=== PATIENT | female | born 1955 | race Caucasian/White ===

== ENCOUNTER 2022-03-16 05:54 | Inpatient (IN) | payer OTHER, SELFPAY ==
[2022-03-16] VITALS (7 sets, daily range): BP systolic 93–170; BP diastolic 30–80; PULSE 70–102; RESP 16–22; TEMP 36.5–36.6; O2SAT 93–100; BMI 25.7
--- NOTE | ~2022-03-16 | XR_ITS ---
EXAMINATION: XR CHEST CLINICAL INFORMATION: TLC placement COMPARISON: None TECHNIQUE: Frontal view of the chest was obtained. FINDINGS: Endotracheal tube tip lies approximately 2 cm above the margoth. Enteric tube courses into the stomach. Left IJ central line tip lies in the region of the right atrium. The lungs are hypoinflated. Mild bibasilar atelectasis is suspected. No evidence of pneumothorax or significant pleural effusion. The cardiomediastinal contour is unremarkable. No acute osseous findings are seen. XR/XR chest 1V IMPRESSION: Left IJ central line tip in the region of the right atrium. Low lung volumes with suspected bibasilar atelectasis.
--- NOTE | ~2022-03-16 | CT_ITS ---
EXAMINATION: CT ABDOMEN AND PELVIS WITH CONTRAST CLINICAL INFORMATION: Left lower quadrant pain. COMPARISON: None TECHNIQUE: Multidetector volumetric images were obtained from the superior aspect of the liver through the pubic symphysis following administration 85 mL of Omnipaque 350 intravenous contrast. Sagittal and coronal reformatted images were obtained on the technologist's workstation. Oral contrast: No. This CT examination was performed using dose optimization techniques as appropriate, variously including the following: *Automated exposure control *Adjustment of mA and/or kV according to patient size (this includes techniques or standardized protocols for targeted exams where dose is matched to indication/reason for exam; i.e. extremities or head) *Use of iterative reconstruction technique DLP: 669 mGy-cm FINDINGS: LUNG BASES: There is minimal dependent bibasilar atelectasis. There is a small hiatal hernia. The heart size is normal. LIVER, GALLBLADDER, AND BILIARY TREE: The liver is normal in size, shape, and attenuation. No focal hepatic lesion or biliary ductal dilatation is present. The gallbladder is unremarkable with no evidence of radiopaque gallstones, gallbladder wall thickening, or obvious pericholecystic inflammatory changes. PANCREAS: Unremarkable. SPLEEN: Unremarkable. ADRENAL GLANDS: Unremarkable. KIDNEYS AND URETERS: The kidneys are normal in size, shape, and attenuation. No hydronephrosis, hydroureter, or calculi seen. No perinephric stranding. There are small hypodensities in both kidneys, likely tiny cysts. BLADDER: Unremarkable. GASTROINTESTINAL TRACT: There is a large amount of stool seen throughout the colon with mild mural thickening involving the descending and sigmoid colon with fat stranding around the descending colon suggestive of colitis. A few scattered diverticula are seen in the sigmoid colon. Prominent terminal ileum with mural thickening and fecal residue seen. The rest of the small bowel is unremarkable. The appendix is not seen. ABDOMINAL WALL: No significant hernia is appreciated. LYMPH NODES: Normal. VASCULAR: Unremarkable. PELVIC VISCERA: There is a small amount of free fluid in the pelvis. OSSEOUS STRUCTURES: Grade 1 anterolisthesis L4 over L5. There are calcifications throughout the discs from the L2-L3 through L5-S1 disc levels. Mild ventral spondylosis seen in the lower dorsal and upper lumbar spine. CT/CT abdomen pelvis w IV con IMPRESSION: Diffuse mural thickening involving descending and sigmoid colon with pericolic fat stranding in descending colon suggestive of colitis, likely inflammatory infectious etiology. Moderate stool is seen in the right colon. Prominent terminal ileum with stool but no mural thickening seen, nonspecific. Results were called to Dr. Stephany rodriguez by phone at 9:58 AM. Fleischner guidelines were followed.
[2022-03-16] MEDS: 0.9 % Sodium Chloride 1,000 ML 999 ML IV (06:17)
[2022-03-16] MEDS: ondansetron HCL 4 MG/2 ML VIAL IVPUSH ×3 (06:17→09:53)
[2022-03-16] MEDS: Morphine Sulfate 4 MG/ML CARTRIDGE IVPUSH (06:17)
[2022-03-16 06:19] LABS: MANUAL DIFF FLAG NO
[2022-03-16 06:20] LABS: Basophils Absolute Auto 0.1 X10*3/uL (0.0-0.2); Basophils Percent Auto 0.3 % (0-2); Eosinophils Percent Auto 0.2 % (0-4); Hematocrit 41.1 % (37.0-47.0); Hemoglobin 14.1 g/dl (12.0-16.0); Imm Gran Abs Auto 0.09 X10*3/uL (0.00-0.03); Imm Gran Pct Auto 0.5 % (0.0-0.4); Lymphocytes Absolute Auto 1.5 X10*3/uL (1.2-4.9); Lymphocytes Percent Auto 8.6 % (20-40); Mean Corpuscular HGB Conc 34.3 g/dl (31.0-35.0); Mean Corpuscular Hemoglobin 31.7 pg (27.0-33.0); Mean Corpuscular Volume 92.4 fL (80.0-98.0); Mean Platelet Volume 9.7 fL (9.4-12.3); Monocytes Absolute Auto 0.6 X10*3/uL (0.1-1.2); Monocytes Percent Auto 3.4 % (2-11); Neutrophils Absolute Auto 15.5 x10*3/uL (2.0-8.3); Platelet Count 337 X10*3/uL (160-400); Red Blood Count 4.45 X10*6/uL (4.20-5.50); Red Cell Distribution Width 12.1 % (11.0-16.0); White Blood Count 17.8 X10*3/uL (4.8-10.8)
[2022-03-16 06:38] LABS: Alanine Aminotransferase 25 U/L (0-31); Albumin Level 4.2 g/dL (3.5-5.0); Alkaline Phosphatase 95 U/L (39-117); Anion Gap 20 (12-20); Aspartate Amino Transferase 29 U/L (5-31); Bilirubin Direct 0.2 mg/dL (0.0-0.5); Bilirubin Total 0.4 mg/dL (0.0-1.0); Blood Urea Nitrogen 21 mg/dL (9-16); Calcium 9.3 mg/dL (8.4-10.2); Carbon Dioxide 20 mmol/L (22-29); Chloride 102 mmol/L (96-108); Creatinine Clr Calc Pharmacy 48.5; Estimated Glomerular Filt Rate 55; Glucose Random 203 mg/dL (60-115); Lipase 19 U/L (8-78); Potassium 3.7 mmol/L (3.3-5.1); Sodium 138 mmol/L (135-145); Total Protein 6.6 g/dL (6.5-8.0)
--- NOTE | 2022-03-16 06:53 | ED.ABDPAIN ---
HPI - Abdominal Pain General Chief Complaint: Abdominal Pain Stated Complaint: lower left abd pain Time Seen by Provider: 03/16/22 06:47 Source: patient, family (Brother) and EMS Mode of arrival: EMS Limitations: no limitations History of Present Illness HPI narrative: 66-year-old female came in for evaluation of lower abdominal pain. Pain started 01:00 woke her up from sleep pain is localized to the left lower quadrant area radiates to the rectum feels pressure in the rectum area, pain is severe /10 described as dull aching pain, patient radiates to the rectum, and pain is constant, pain is associated with nausea and vomiting, no fever no chills last bowel movement was yesterday patient described it as normal. No dysuria, no frequency urination, no vaginal bleeding. No recent travel, no fever, no chills. History of abdominal surgery of appendectomy, hysterectomy, and . Patient with known history of diverticular disease. Related Data Home Medications Medication Instructions Recorded Confirmed lisinopril 10 mg tablet 1 tab PO DAILY 03/16/22 Allergies Allergy/AdvReac Type Severity Reaction Status Date / Time Penicillins Allergy Severe Hives Verified 03/16/22 11:13 Review of Systems Review of Systems All other systems are reviewed and are negative Constitutional: Reports as per HPI and Reports no additional constitutional complaints Eyes: Reports as per HPI and Reports no additional eye complaints Reports system reviewed and no additional complaints, except as documented Cardiovascular: Reports as per HPI and Reports no additional cardiovascular complaints Respiratory: Reports as per HPI and Reports no additional respiratory complaints Gastrointestinal: Reports as per HPI and Reports no additional gastrointestinal complaints Genitourinary: Reports no additional female genitourinary complaints Musculoskeletal: Reports no additional musculoskeletal complaints Skin/Breast: Reports system reviewed and no additional complaints, except as docu Psychiatric: Reports no additional psychiatric complaints Endocrine: Reports no additional endocrine complaints Hematologic/Lymphatic: Reports no additional hematologic/lymphatic complaints Allergic/Immunologic: Reports no additional allergic/immunologic complaints Reports system reviewed and no additional complaints, except as documented and Reports Abnormal speech present COUNTS INCLUDE 234 BEDS AT THE [facility] Past Medical History Medical History (Updated 03/16/22 @ 11:29 by Jose Francisco Linder MD) Browne esophagus Hypertension Surgical History (Updated 03/16/22 @ 11:29 by Jose Francisco Linder MD) History of section History of hysterectomy Social History Social History (Updated 03/16/22 @ 11:30 by Jose Francisco Linder MD) Alcohol intake: never Patient Tobacco Use Status: Never used Tobacco Use of substances other than those prescribed or required for medical reasons: No Advance Directives: No Current occupational status: employed 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 Blood pressure normal. Heart rate normal. Respiration rate elevated. Temperature normal. Oxygen saturation normal. Appearance: Alert. Oriented X3. No acute distress. Head: Normal external exam. Normocephalic. Atraumatic. No Jorgensen signs noted. No raccoon eyes noted Eyes: PERRLA. EOMI. Conjunctiva and sclera normal. Eyelids normal. ENT: TM's Normal. Pharynx normal. Uvula midline. Moist mucous membranes. No trismus noted. No drooling noted. No muffled voice noted. Neck: Normal inspection. Neck supple. FROM. No adenopathy. Thyroid Normal. No meningeal signs. No neck mass noted. CVS: Normal heart rate and rhythm. Heart sound normal. No murmurs noted. Pulses normal throughout. Respiratory: No respiratory distress. Painless inspiration. Breath sounds normal. No wheezes/rales/rhonchi noted. Chest nontender. No accessory muscle usage noted or decreased air movement noted. Abdomen: Soft, left lower quadrant tenderness, mild rebound tenderness with guarding.. Bowel sounds normal in all 4 quadrants. No distention noted. No organomegaly noted. No visible injury noted. Back: No CVA tenderness. Full range of motion noted. Skin: Skin warm and dry. Normal skin color. Normal skin turgor. No rashes/lesions/lacerations noted. Extremities: No lower extremity edema. Extremities exhibit normal range of motion. Extremities nontender. Neuro: Oriented X 3. Cranial nerve exam: II-XII are grossly intact No motor deficit. No sensory deficit. Reflexes normal. Course Course Course Narrative: 66-year-old female presented with abdominal pain CT is revealing colitis, heart rate was 99 and tachypnea of 22 which apparently secondary to severe abdominal pain now HR is 80s and RR is 16 after pain control, leukocytosis however patient do not meet criteria for SIRS or sepsis, and lactic acidosis is more than likely due to dehydration and vomiting, patient will receive Levaquin/Flagyl in the ED with pain control with narcotic and antinausea medication. MDM - Abdominal Pain Lab Data Attestation: I reviewed the patient's lab results. Result diagrams: 03/16/22 06:13 03/16/22 06:13 Labs: Lab Results 03/16/22 03/16/22 03/16/22 Range/Units 06:13 06:13 07:49 WBC 17.8 H (4.8-10.8) X10*3/uL RBC 4.45 (4.20-5.50) X10*6/uL Hgb 14.1 (12.0-16.0) g/dl Hct 41.1 (37.0-47.0) % MCV 92.4 (80.0-98.0) fL MCH 31.7 (27.0-33.0) pg MCHC 34.3 (31.0-35.0) g/dl RDW 12.1 (11.0-16.0) % Plt Count 337 (160-400) X10*3/uL MPV 9.7 (9.4-12.3) fL Immature Gran % (Auto) 0.5 H (0.0-0.4) % Neut % (Auto) 87.0 H (45-73) % Lymph % (Auto) 8.6 L (20-40) % [place] % (Auto) 3.4 (2-11) % Eos % (Auto) 0.2 (0-4) % Baso % (Auto) 0.3 (0-2) % Lymph # (Auto) 1.5 (1.2-4.9) X10*3/uL [place] # (Auto) 0.6 (0.1-1.2) X10*3/uL Eos # (Auto) 0.0 (0.0-0.4) X10*3/uL Baso # (Auto) 0.1 (0.0-0.2) X10*3/uL Abs Immat Gran (auto) 0.09 H (0.00-0.03) X10*3/uL Absolute Neuts (auto) 15.5 H (2.0-8.3) x10*3/uL Absolute Nucleated RBC 0.000 (0.0-0.012) X10*3/uL Nucleated RBC % (auto) 0.0 (0.0-0.2) /100WBC Sodium 138 (135-145) mmol/L Potassium 3.7 (3.3-5.1) mmol/L Chloride 102 (96-108) mmol/L Carbon Dioxide 20 L (22-29) mmol/L Anion Gap 20 (12-20) BUN 21 H (9-16) mg/dL Creatinine 1.00 (0.5-1.4) mg/dL Estim Creat Clear Calc 48.5 Estimated GFR 55 Random Glucose 203 H (60-115) mg/dL Lactic Acid (0.5-2.0) mmol/L Calcium 9.3 (8.4-10.2) mg/dL Magnesium 2.0 (1.6-2.6) mg/dL Total Bilirubin 0.4 (0.0-1.0) mg/dL Direct Bilirubin 0.2 (0.0-0.5) mg/dL AST 29 (5-31) U/L ALT 25 (0-31) U/L Alkaline Phosphatase 95 (39-117) U/L C-Reactive Protein 0.13 (< or = 0.50) mg/dL Total Protein 6.6 (6.5-8.0) g/dL Albumin 4.2 (3.5-5.0) g/dL Lipase 19 (8-78) U/L Urine Color Urine Appearance Urine pH (5.0-9.0) Ur Specific [place] (1.005-1.025) Urine Protein (Neg-Trace) mg/dL Urine Glucose (UA) (Negative) mg/dL Urine Ketones (Negative) mg/dL Urine Blood (Negative) Urine Nitrite (Negative) Ur Leukocyte Esterase (Negative) Urine RBC (0-2) /HPF Urine WBC (0-5) /HPF Ur Squamous Epith Cells (0-2) /HPF Urine Bacteria (None Seen) Hyaline Casts (0-2) /LPF COVID-19 (JASSI) Negative (Negative) COVID-19 Clin Com See Note 03/16/22 03/16/22 Range/Units 09:04 10:27 WBC (4.8-10.8) X10*3/uL RBC (4.20-5.50) X10*6/uL Hgb (12.0-16.0) g/dl Hct (37.0-47.0) % MCV (80.0-98.0) fL MCH (27.0-33.0) pg MCHC (31.0-35.0) g/dl RDW (11.0-16.0) % Plt Count (160-400) X10*3/uL MPV (9.4-12.3) fL Immature Gran % (Auto) (0.0-0.4) % Neut % (Auto) (45-73) % Lymph % (Auto) (20-40) % [place] % (Auto) (2-11) % Eos % (Auto) (0-4) % Baso % (Auto) (0-2) % Lymph # (Auto) (1.2-4.9) X10*3/uL [place] # (Auto) (0.1-1.2) X10*3/uL Eos # (Auto) (0.0-0.4) X10*3/uL Baso # (Auto) (0.0-0.2) X10*3/uL Abs Immat Gran (auto) (0.00-0.03) X10*3/uL Absolute Neuts (auto) (2.0-8.3) x10*3/uL Absolute Nucleated RBC (0.0-0.012) X10*3/uL Nucleated RBC % (auto) (0.0-0.2) /100WBC Sodium (135-145) mmol/L Potassium (3.3-5.1) mmol/L Chloride (96-108) mmol/L Carbon Dioxide (22-29) mmol/L Anion Gap (12-20) BUN (9-16) mg/dL Creatinine (0.5-1.4) mg/dL Estim Creat Clear Calc Estimated GFR Random Glucose (60-115) mg/dL Lactic Acid 3.3 H* (0.5-2.0) mmol/L Calcium (8.4-10.2) mg/dL Magnesium (1.6-2.6) mg/dL Total Bilirubin (0.0-1.0) mg/dL Direct Bilirubin (0.0-0.5) mg/dL AST (5-31) U/L ALT (0-31) U/L Alkaline Phosphatase (39-117) U/L C-Reactive Protein (< or = 0.50) mg/dL Total Protein (6.5-8.0) g/dL Albumin (3.5-5.0) g/dL Lipase (8-78) U/L Urine Color Dark Yellow Urine Appearance Clear Urine pH 5.0 (5.0-9.0) Ur Specific [place] >= 1.030 H (1.005-1.025) Urine Protein Trace (Neg-Trace) mg/dL Urine Glucose (UA) Negative (Negative) mg/dL Urine Ketones Negative (Negative) mg/dL Urine Blood Negative (Negative) Urine Nitrite Negative (Negative) Ur Leukocyte Esterase Trace H (Negative) Urine RBC 3-5 H (0-2) /HPF Urine WBC 0-5 (0-5) /HPF Ur Squamous Epith Cells 0-2 (0-2) /HPF Urine Bacteria None Seen (None Seen) Hyaline Casts 0-2 (0-2) /LPF COVID-19 (JASSI) (Negative) COVID-19 Clin Com Imaging Data CT scan - abdomen: Attestation: I personally reviewed and interpreted this imaging study as follows: Radiologist's impression: Diffuse mural thickening involving descending and sigmoid colon with pericolic fat stranding in descending colon suggestive of colitis, likely inflammatory infectious etiology. Moderate stool is seen in the right colon. Prominent terminal ileum with stool but no mural thickening seen, nonspecific. Discharge Plan Discharge Clinical Impression: Abdominal pain, Colitis Patient Disposition: Admitted As Inpatient
[2022-03-16] MEDS: HYDROmorphone HCl 1 MG/ML SYRINGE IVPUSH ×2 (07:25→09:53)
[2022-03-16] MEDS: iohexoL 350 MG/ML 100 ML INFUS..BTL 85 ML IV (07:42)
[2022-03-16] MEDS: iohexoL 350 MG/ML 100 ML INFUS..BTL IV (07:58)
[2022-03-16 08:08] LABS: COVID-19 Test Negative (Negative); IDNOW Serial# 55D5AD1C
[2022-03-16 09:13] LABS: Appearance Urine Clear; Color Urine Dark Yellow; Glucose Urine UA Negative (Negative); Leukocyte Esterase Urine Trace (Negative); Nitrite Urine Negative (Negative); Specific Gravity - Urine >= 1.030 (1.005-1.025); UMIC TRIGGER UACC YES; Urine Blood Negative (Negative); Urine Ketones Negative (Negative); Urine Protein Trace mg/dL (Neg-Trace)
[2022-03-16 09:34] LABS: Bacteria Urine None Seen (None Seen); Hyaline Casts Urine 0-2 /LPF (0-2); Squamous Epithelial Cell Urine 0-2 /HPF (0-2); WBC Urine 0-5 /HPF (0-5)
[2022-03-16 11:10] LABS: C Reactive Protein 0.13 mg/dL (< or = 0.50)
[2022-03-16] MEDS: metroNIDAZOLE/NS 500 MG/100 ML PIGGYBACK 100 MG IV (11:16)
--- NOTE | 2022-03-16 11:21 | P.HPHOSP_ITS ---
History of Present Illness Date of Service: 03/16/22 Chief Complaint: abdominal pain 66yo F with HTN and Browne's esophagus presenting with acute onset of severe rectal pain radiating to the LLQ that woked her from sleep at 01:00. She has also had nausea and several episodes of non-bloody, non-bilious emesis. No diarrhea; in fact, she usually struggles with constipation. No fever or chills. No recent antibiotics, overseas travel, or high-risk food exposures. 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 In the ED she was tachypneic to 22 and found to have leukocytosis of 17.8k with 87% PMNs. She was given levofloxacin and metronidazole due to history of hives with penicillin. She got 3 doses of ondansetron 4 mg, 4 mg of IV morphine, and 2 doses of IV hydromorphone 1 mg. She was also given 1L of NS. Lactic acid was 3.3. CT showed diffuse mural thickening of the descending and sigmoid colon suggestive of inflammatory or infectious colitis. She had a colonoscopy approximately 2 y ears ago that showed diverticulosis. No known history of IBD, though her mother struggles with chronic diarrhea. Review of Systems Review of Systems: Yes all other systems are reviewed and are negative [facility] Medical History (Updated 03/16/22 @ 11:29 by Jose Francisco Linder MD) Browne esophagus Hypertension Surgical History (Updated 03/16/22 @ 11:29 by Jose Francisco Linder MD) History of section History of hysterectomy Social History (Updated 03/16/22 @ 11:30 by Jose Francisco Linder MD) Alcohol intake: never Patient Tobacco Use Status: Never used Tobacco Use of substances other than those prescribed or required for medical reasons: No Advance Directives: No Current occupational status: employed 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 Meds Allergies Allergy/AdvReac Type Severity Reaction Status Date / Time Penicillins Allergy Severe Hives Verified 03/16/22 11:13 Active Medications: Current Medications Acetaminophen (Acetaminophen 325 Mg Tablet) 650 mg PO Q6H PRN PRN Reason: Pain, Mild (Pain Scale 1-3) Enoxaparin Sodium (Enoxaparin Sodium 40 Mg/0.4 Ml Syringe) 40 mg SUBCUT Q24H DEANDRA Levofloxacin (Levaquin) 750 mg in 150 mls @ 100 mls/hr IV ONCE ONE Stop: 03/16/22 11:29 Lactated Ringer's (Lr) 1,000 mls @ 100 mls/hr IVCONT .Q10H [facility] Metoclopramide HCl (Metoclopramide Hcl 10 Mg/2 Ml Vial) 5 mg IVPUSH Q4H PRN PRN Reason: nausea/vomiting Ondansetron HCl (Ondansetron Hcl 4 Mg/2 Ml Vial) 4 mg IVPUSH Q8H PRN PRN Reason: nausea/vomiting Pharmacy Consult (Consult Rx Perform Med Rec) 1 each MISCELLANE ONCE PRN PRN Reason: Consult order Sodium Chloride (0.9 % Sodium Chloride Flush 3 Ml Syringe) 3 ml IVFLUSH QSHIFT [facility] Home Medications Medication Instructions Recorded Confirmed Last Taken Type lisinopril 10 mg tablet 1 tab PO DAILY 03/16/22 Unknown History Physical Exam Vital Signs and Narrative: Vital Signs: Last Vital Signs Pulse 84 03/16/22 09:05 Resp 16 03/16/22 09:05 BP 99/55 L 03/16/22 09:05 Pulse Ox 95 03/16/22 09:05 O2 Del Method 03/16/22 09:05 BMI result Body Mass Index 25.7 Gen: nauseous, vomiting HEENT: sclera anicteric, moist mucus membranes Neck: supple Lungs: clear to auscultation bilaterally Heart: regular rate and rhythm, no murmurs Abd: soft, tender LLQ, no rebound/guarding non-distended Ext: no edema Skin: warm/well-perfused Neuro: alert and oriented x3, no focal findings Psych: appropriate affect Results Labs CBC and Chem 7: 03/16/22 06:13 03/16/22 06:13 Labs: Laboratory Results - last 24 hr 03/16/22 03/16/22 03/16/22 06:13 06:13 07:49 MCV 92.4 MCH 31.7 MCHC 34.3 RDW 12.1 Plt Count 337 MPV 9.7 Immature Gran % (Auto) 0.5 H Neut % (Auto) 87.0 H Lymph % (Auto) 8.6 L [place] % (Auto) 3.4 Eos % (Auto) 0.2 Baso % (Auto) 0.3 Lymph # (Auto) 1.5 [place] # (Auto) 0.6 Eos # (Auto) 0.0 Baso # (Auto) 0.1 Abs Immat Gran (auto) 0.09 H Absolute Neuts (auto) 15.5 H Absolute Nucleated RBC 0.000 Nucleated RBC % (auto) 0.0 Anion Gap 20 Estim Creat Clear Calc 48.5 Estimated GFR 55 Random Glucose 203 H Calcium 9.3 Magnesium 2.0 Total Bilirubin 0.4 Direct Bilirubin 0.2 AST 29 ALT 25 Alkaline Phosphatase 95 C-Reactive Protein 0.13 Total Protein 6.6 Albumin 4.2 Lipase 19 Urine Color Urine Appearance Urine pH Ur Specific [place] Urine Protein Urine Glucose (UA) Urine Ketones Urine Blood Urine Nitrite Ur Leukocyte Esterase Urine RBC Urine WBC Ur Squamous Epith Cells Urine Bacteria Hyaline Casts COVID-19 (JASSI) Negative COVID-19 Clin Com See Note 03/16/22 09:04 MCV MCH MCHC RDW Plt Count MPV Immature Gran % (Auto) Neut % (Auto) Lymph % (Auto) [place] % (Auto) Eos % (Auto) Baso % (Auto) Lymph # (Auto) [place] # (Auto) Eos # (Auto) Baso # (Auto) Abs Immat Gran (auto) Absolute Neuts (auto) Absolute Nucleated RBC Nucleated RBC % (auto) Anion Gap Estim Creat Clear Calc Estimated GFR Random Glucose Calcium Magnesium Total Bilirubin Direct Bilirubin AST ALT Alkaline Phosphatase C-Reactive Protein Total Protein Albumin Lipase Urine Color Dark Yellow Urine Appearance Clear Urine pH 5.0 Ur Specific [place] >= 1.030 H Urine Protein Trace Urine Glucose (UA) Negative Urine Ketones Negative Urine Blood Negative Urine Nitrite Negative Ur Leukocyte Esterase Trace H Urine RBC 3-5 H Urine WBC 0-5 Ur Squamous Epith Cells 0-2 Urine Bacteria None Seen Hyaline Casts 0-2 COVID-19 (JASSI) COVID-19 Clin Com Imaging Radiologist's Impressions: Impressions Abdomen/Pelvis CT 03/16/22 07:57 IMPRESSION: Diffuse mural thickening involving descending and sigmoid colon with pericolic fat stranding in descending colon suggestive of colitis, likely inflammatory infectious etiology. Moderate stool is seen in the right colon. Prominent terminal ileum with stool but no mural thickening seen, nonspecific. Results were called to Dr. Stephany rodriguez by phone at 9:58 AM. Fleischner guidelines were followed. Assessment and Plan (1) Colitis: Status: Acute Plan 66yo F with HTN and Browne's esophagus presenting with acute rectal/LLQ pain and nausea/vomiting, found to have leukocytosis, lactic acidosis, and CT finding of colitis of sigmoid and descending colon. # colitis - admit to M/S, NPO/ADAT, IV fluids, IV antiemetics, metronidazole + levofloxacin IV, GI consultation, stool studies if develops diarrhea # lactic acidosis - IV fluid hyration # HTN - hold lisinopril given soft BP # Barretts esophagus - PPI # VTE prophylaxis: LMWH # code status: full I anticipate that the patient will stay at least 2 midnights in hospital due to the above reasons. It is neither reasonable nor safe to care for them in a less acute setting. Quality Stroke Does the patient have a stroke diagnosis?: No VTE Prior VTE?: No VTE Risk Level:: Medical - moderate - high VTE Device Contraindication: N/A - Device Ordered VTE Drug Contraindication: N/A - Med Ordered
[2022-03-16 11:24] LABS: Lactic Acid 3.3 mmol/L (0.5-2.0)
[2022-03-16] MEDS: Pantoprazole Sodium 40 MG/10 ML VIAL IVPUSH (12:20)
[2022-03-16] MEDS: Metoclopramide HCl 10 MG/2 ML VIAL 5 MG IVPUSH ×2 (12:21→17:38)
[2022-03-16] MEDS: levoFLOXacin/D5W 750 MG/150 ML PIGGYBACK 100 MG IV (12:24)
[2022-03-16] MEDS: Lactated Ringers 1,000 ML 100 ML IVCONT (12:24)
--- NOTE | 2022-03-16 12:29 | PHA.MEDREC ---
Pharmacy Consult ? Medication Reconciliation Pharmacy has completed the medication reconciliation. With Geovanna (Daughter) at bedside, confirmed home meds.
[2022-03-16 12:31] LABS: Reflex Lactate? Lactic Acid Added
[2022-03-16] MEDS: HYDROmorphone HCl 2 MG/ML VIAL 1.5 MG IVPUSH (13:43)
[2022-03-16] MEDS: Enoxaparin Sodium 40 MG/0.4 ML SYRINGE SUBCUT (13:44)
[2022-03-16 14:18] LABS: ~Lactic Acid-LAB USE ONLY 5.9 mmol/L (0.5-2.0)
[2022-03-16 15:37] LABS: Reflex Lactate? 2 Y
[2022-03-16 17:30] LABS: ~Lactic Acid-LAB USE ONLY 7.4 mmol/L (0.5-2.0)
[2022-03-16] MEDS: HYDROmorphone HCl 2 MG TABLET 1 MG PO (17:39)
--- NOTE | 2022-03-16 18:16 | PM.EVENT ---
Event Note Date of Service: 03/16/22 Event Note: called by RN for increasing LA 3.3->7.4, pt c/o increasing distension noted to have tenderness in LLQ + now LUQ but no rebound/guarding. bowel sounds not present. plan: serial abd exams, abd plain film, surgery evaluation. on LR 100 mL/hr after 30 cc/kg bolus
--- NOTE | 2022-03-16 18:49 | P.HPGS_ITS ---
History of Present Illness History of Present Illness Date of Service: 03/20/22 Chief complaint: colitis Narrative: Kelley Figueroa is a 66 year old female admitted this AM for abdominal pain. She started to have LLQ pain yesterday afternoon and this persisted, becoming severe last night. She called 911 and was brought to the ED late last night. She had a CT this AM showing thickening of the wall of the sigmoid/descending, w/ colitis. Her abdominal pain has been steadily increasing. Her WBC was 17 on admission. Her lactate was 3.3 this AM, went up to 5.5 and now is 7.4. She denies any diarrhea. She had been seeing a weather stripper in [place] for years for Browne's esophagus. Review of Systems Constitutional: Constitutional: Denies chills and Denies fever(s) Cardiovascular: Cardiovascular: Denies chest pain, Reports dyspnea and Denies dyspnea on exertion Respiratory: Respiratory: Denies cough, Reports dyspnea and Denies dyspnea on exertion Gastrointestinal: Gastrointestinal: Denies hematochezia and Denies change in bowel habits Genitourinary: Genitourinary: Denies hematuria Musculoskeletal: Musculoskeletal: Denies back pain and Denies limited range of motion Neurologic: Denies focal weakness and Denies convulsions Psychiatric: Psychiatric: Denies depression and Denies mood swings PMFSH Past Medical History Medical History (Updated 03/17/22 @ 00:23 by Saqib King MD) Browne esophagus Hypertension Lactic acidosis Surgical History Surgical History History of section History of hysterectomy Social History Social History Household Members: Children Housing: House Do you presently have visiting nurse or other home services: No Alcohol intake: never Patient Tobacco Use Status: Never used Tobacco e-Cigarette/Vaping Use: Former Use Second Hand Smoke Exposure: No Current occupational status: employed 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 Meds Allergies Allergy/AdvReac Type Severity Reaction Status Date / Time Penicillins Allergy Severe Hives Verified 03/16/22 11:13 Active Medications: Current Medications Acetaminophen (Acetaminophen 325 Mg Tablet) 650 mg PO Q6H PRN PRN Reason: Pain, Mild (Pain Scale 1-3) Hydromorphone HCl (Hydromorphone Hcl 2 Mg Tablet) 1 mg PO Q3H PRN PRN Reason: severe pain Last Admin: 03/16/22 17:39 Dose: 1 mg Lactated Ringer's (Lr) 1,000 mls @ 100 mls/hr IVCONT .Q10H [facility] Last Admin: 03/16/22 12:24 Dose: 100 mls/hr Levofloxacin (Levaquin) 750 mg in 150 mls @ 100 mls/hr IV Q48H [facility] Last Admin: 03/16/22 12:27 Dose: Not Given Metronidazole (Flagyl) 500 mg in 100 mls @ 100 mls/hr IV Q8H [facility] Metoclopramide HCl (Metoclopramide Hcl 10 Mg/2 Ml Vial) 5 mg IVPUSH Q4H PRN PRN Reason: nausea/vomiting Last Admin: 03/16/22 17:38 Dose: 5 mg Multivitamins/Vitamin C (Multivitamin Tablet) 1 tab PO DAILY [facility] Ondansetron HCl (Ondansetron Hcl 4 Mg/2 Ml Vial) 4 mg IVPUSH Q8H PRN PRN Reason: nausea/vomiting Pantoprazole Sodium (Pantoprazole Sodium 40 Mg/10 Ml Vial) 40 mg IVPUSH DA MAGO@0630 [facility] Last Admin: 03/16/22 12:20 Dose: 40 mg Pharmacy Consult (Consult Rx Perform Med Rec) 1 each MISCELLANE ONCE PRN PRN Reason: Consult order Sodium Chloride (0.9 % Sodium Chloride Flush 3 Ml Syringe) 3 ml IVFLUSH QSHIFT [facility] Last Admin: 03/16/22 15:20 Dose: Not Given Home Medications Medication Instructions Recorded Confirmed Last Taken Type lansoprazole 30 mg capsule,delayed 1 cap PO DAILY 03/16/22 03/16/22 03/15/22 History release lisinopril 10 mg tablet 1 tab PO DAILY 03/16/22 03/16/22 03/15/22 History multivitamin 1 tab PO DAILY 03/16/22 03/16/22 03/15/22 History Physical Exam Vital Signs: Vital Signs: Last Vital Signs Temp 97.8 F 03/16/22 16:00 Pulse 102 H 03/16/22 16:00 Resp 20 03/16/22 16:00 BP 100/62 03/16/22 16:00 Pulse Ox 94 03/16/22 16:00 O2 Del Method 03/16/22 16:00 O2 Flow Rate 2 03/16/22 13:29 BMI result Body Mass Index 25.7 Const: Other: looks ill, some diaphoresis Orientation/consciousness: patient oriented x3 Neck: Neck: Yes no lymphadenopathy Resp: Other: some SOB Auscultation: clear to auscultation bilaterally Cardio: Rhythm: regular rhythm GI: Other: somewhat distended Palpation (GI): Soft to palpation, Tenderness to palpation present (GI) (left side of abdomen) and no guarding Neuro: General: patient oriented x3 Results Results Labs: Short CBC 03/16/22 Range/Units 06:13 WBC 17.8 H (4.8-10.8) X10*3/uL Hgb 14.1 (12.0-16.0) g/dl Hct 41.1 (37.0-47.0) % Plt Count 337 (160-400) X10*3/uL BMP 03/16/22 06:13 Sodium 138 Potassium 3.7 Chloride 102 Carbon Dioxide 20 L BUN 21 H Creatinine 1.00 Calcium 9.3 Liver Function 03/16/22 Range/Units 06:13 Total Bilirubin 0.4 (0.0-1.0) mg/dL Direct Bilirubin 0.2 (0.0-0.5) mg/dL AST 29 (5-31) U/L ALT 25 (0-31) U/L Alkaline Phosphatase 95 (39-117) U/L Albumin 4.2 (3.5-5.0) g/dL Urine 03/16/22 Range/Units 09:04 Urine Color Dark Yellow Urine Appearance Clear Urine pH 5.0 (5.0-9.0) Ur Specific [place] >= 1.030 H (1.005-1.025) Urine Protein Trace (Neg-Trace) mg/dL Urine Glucose (UA) Negative (Negative) mg/dL Additional studies: Laboratory Results WBC 17.8 X10*3/uL (4.8-10.8) H 03/16/22 06:13 RBC 4.45 X10*6/uL (4.20-5.50) 03/16/22 06:13 Hgb 14.1 g/dl (12.0-16.0) 03/16/22 06:13 Hct 41.1 % (37.0-47.0) 03/16/22 06:13 MCV 92.4 fL (80.0-98.0) 03/16/22 06:13 MCH 31.7 pg (27.0-33.0) 03/16/22 06:13 MCHC 34.3 g/dl (31.0-35.0) 03/16/22 06:13 RDW 12.1 % (11.0-16.0) 03/16/22 06:13 Plt Count 337 X10*3/uL (160-400) 03/16/22 06:13 MPV 9.7 fL (9.4-12.3) 03/16/22 06:13 Immature Gran % (Auto) 0.5 % (0.0-0.4) H 03/16/22 06:13 Neut % (Auto) 87.0 % (45-73) H 03/16/22 06:13 Lymph % (Auto) 8.6 % (20-40) L 03/16/22 06:13 Frio % (Auto) 3.4 % (2-11) 03/16/22 06:13 Eos % (Auto) 0.2 % (0-4) 03/16/22 06:13 Baso % (Auto) 0.3 % (0-2) 03/16/22 06:13 Lymph # (Auto) 1.5 X10*3/uL (1.2-4.9) 03/16/22 06:13 Frio # (Auto) 0.6 X10*3/uL (0.1-1.2) 03/16/22 06:13 Eos # (Auto) 0.0 X10*3/uL (0.0-0.4) 03/16/22 06:13 Baso # (Auto) 0.1 X10*3/uL (0.0-0.2) 03/16/22 06:13 Abs Immat Gran (auto) 0.09 X10*3/uL (0.00-0.03) H 03/16/22 06:13 Absolute Neuts (auto) 15.5 x10*3/uL (2.0-8.3) H 03/16/22 06:13 Absolute Nucleated RBC 0.000 X10*3/uL (0.0-0.012) 03/16/22 06:13 Nucleated RBC % (auto) 0.0 /100WBC (0.0-0.2) 03/16/22 06:13 Sodium 138 mmol/L (135-145) 03/16/22 06:13 Potassium 3.7 mmol/L (3.3-5.1) 03/16/22 06:13 Chloride 102 mmol/L (96-108) 03/16/22 06:13 Carbon Dioxide 20 mmol/L (22-29) L 03/16/22 06:13 Anion Gap 20 (12-20) 03/16/22 06:13 BUN 21 mg/dL (9-16) H 03/16/22 06:13 Creatinine 1.00 mg/dL (0.5-1.4) 03/16/22 06:13 Estim Creat Clear Calc 48.5 03/16/22 06:13 Estimated GFR 55 03/16/22 06:13 Random Glucose 203 mg/dL (60-115) H 03/16/22 06:13 Lactic Acid 3.3 mmol/L (0.5-2.0) H* 03/16/22 10:27 Lactic Acid F/U @ 2Hr 5.9 mmol/L (0.5-2.0) H* 03/16/22 13:21 Lactic Acid F/U @ 4Hr 7.4 mmol/L (0.5-2.0) H* 03/16/22 16:54 Calcium 9.3 mg/dL (8.4-10.2) 03/16/22 06:13 Magnesium 2.0 mg/dL (1.6-2.6) 03/16/22 06:13 Total Bilirubin 0.4 mg/dL (0.0-1.0) 03/16/22 06:13 Direct Bilirubin 0.2 mg/dL (0.0-0.5) 03/16/22 06:13 AST 29 U/L (5-31) 03/16/22 06:13 ALT 25 U/L (0-31) 03/16/22 06:13 Alkaline Phosphatase 95 U/L (39-117) 03/16/22 06:13 C-Reactive Protein 0.13 mg/dL (< or = 0.50) 03/16/22 06:13 Total Protein 6.6 g/dL (6.5-8.0) 03/16/22 06:13 Albumin 4.2 g/dL (3.5-5.0) 03/16/22 06:13 Lipase 19 U/L (8-78) 03/16/22 06:13 Urine Color Dark Yellow 03/16/22 09:04 Urine Appearance Clear 03/16/22 09:04 Urine pH 5.0 (5.0-9.0) 03/16/22 09:04 Ur Specific [place] >= 1.030 (1.005-1.025) H 03/16/22 09:04 Urine Protein Trace mg/dL (Neg-Trace) 03/16/22 09:04 Urine Glucose (UA) Negative mg/dL (Negative) 03/16/22 09:04 Urine Ketones Negative mg/dL (Negative) 03/16/22 09:04 Urine Blood Negative (Negative) 03/16/22 09:04 Urine Nitrite Negative (Negative) 03/16/22 09:04 Ur Leukocyte Esterase Trace (Negative) H 03/16/22 09:04 Urine RBC 3-5 /HPF (0-2) H 03/16/22 09:04 Urine WBC 0-5 /HPF (0-5) 03/16/22 09:04 Ur Squamous Epith Cells 0-2 /HPF (0-2) 03/16/22 09:04 Urine Bacteria None Seen (None Seen) 03/16/22 09:04 Hyaline Casts 0-2 /LPF (0-2) 03/16/22 09:04 COVID-19 (JASSI) Negative (Negative) 03/16/22 07:49 COVID-19 Clin Com See Note 03/16/22 07:49 Impressions Abdomen/Pelvis CT 03/16/22 07:57 IMPRESSION: Diffuse mural thickening involving descending and sigmoid colon with pericolic fat stranding in descending colon suggestive of colitis, likely inflammatory infectious etiology. Moderate stool is seen in the right colon. Prominent terminal ileum with stool but no mural thickening seen, nonspecific. Results were called to Dr. Stephayn rodriguez by phone at 9:58 AM. Fleischner guidelines were followed. Assessment and Plan (1) Lactic acidosis: Status: Acute She was admitted for abdominal pain with a CT scan suggestive of colitis of the left colon/sigmoid. Her lactic acid levels are steadily increasing and she describes worsening pain. I explained to her it is best to proceed with laparotomy to visualize her colon and the rest of the viscera for possible ischemia with worsening lactate. I explained the technique of this procedure along with likely need for bowel resection. I reviewed the risks including but not limited to bleeding, infections, injury to bowel, creation of stoma, respiratory failure, MA, CVA, stoma complications. She may need to be in the ICU postoperatively. She has given consent. Her daughter Yanni was with her during the discussion. Quality Stroke Does the patient have a stroke diagnosis?: No VTE Prior VTE?: No VTE Risk Level:: Medical - moderate - high VTE Device Contraindication: N/A - Device Ordered VTE Drug Contraindication: N/A - Med Ordered Procedures Date of Service Date of Service: 03/16/22
--- NOTE | 2022-03-16 19:35 | PC.NURSE ---
Pt admitted family on bedside notes significantly increase abdominal distention and pain, pt received prn nausea and pain meds.Daughter very concern about the pt condition Dr Linder called and evalute pt at bedside. Surgery consulted pt going to emergency surgery.
[2022-03-16 22:29] LABS: INTERNATIONAL NORM RATIO 1.3 (0.9-1.1); Prothrombin Time 15.2 SEC (10.0-13.1)
[2022-03-16 22:32] LABS: Partial Thromboplastin Time 33.1 SEC (26.0-36.4)
[2022-03-16 22:37] LABS: D Dimer High Sensitivity 7141 NG/ML
--- NOTE | 2022-03-16 23:31 | P.OP_ITS ---
Operative Note Operative Note Date of Service: 03/16/22 Narrative: Preop diagnosis: Abdominal pain, worsening lactic acidosis Postop diagnosis: Ischemic bowel, involving most of the small intestine and colon, with marked distention of the cecum Procedure: Exploratory laparotomy, mobilization of the splenic flexure, lysis of adhesions,resection of the cecum, with ileostomy, mucus fistula from the right colon, abdomen left open with Ioban dressing Findings: diffuse patchy hyperemia and hemorrhagic changes of the serosa of most of the small bowel loops, edema of the left colon sigmoid; the mucosa and submucosa of the distal ileum was darkly discolored consistent with ischemia Surgeon: Alvaro Minor MD speech pathology assistant: Bony Andrews MD The patient is a 66 year female, with hypertension, otherwise healthy, who had sudden severe pain starting midnight last night. This had persisted so she was brought to the emergency room. A CT scan showing what appeared to be some suggestion of colitis of the sigmoid distal descending, with mild stranding around this. She continued to have severe pain. She had lactic acidosis which had worsened throughout the course of the day. She became tachycardic with worsening abdominal pain so I was consulted tonight. At that time, the lactate was already 7 so I explained to her that we needed to proceed to OR to do laparotomy in view of the high suspicion for bowel ischemia. Her CAT scan did not reveal any obvious occlusion of the mesenteric vessels. Her daughter did state that she has had this chronic episodes of abdominal pain for many years now that nobody was able to diagnose. The patient and her daughter Geovanna were aware of the procedure and I inform of the multiple risks associated with this including bleeding, infections, worsening of her ischemia. The patient was brought the operating room. She was placed supine. A Galarza catheter was in place. She was placed under general seizure via endotracheal tube. She became extremely hypotensive on induction. Her urine appeared very darkly discolored and concentrated. I had call the cytotechnologist/histotechnologist to assist as at this point because of the hemodynamic instability. He remained in the room throughout the procedure therefore with the anesthesiologist. The abdomen was prepped and draped in the usual sterile fashion after a surgical time-out. The patient received Cefotan. I did midline incision was made on the skin using blade 10. This was carried down with electrocautery through the full- thickness of the skin and subcutaneous fat. The fascia was incised. The peritoneum was entered. There was note of clear serous fluid within the peritoneal cavity. There was note of adherent omentum tethered to the midline of the fascia in the lower abdomen so we had to do lysis of adhesions to free this up. This was achieved with LigaSure as well as with electrocautery. I was was able to free up the entire omentum from the rest of the fascia. This allowed me to reflect the bowel loops away from the pelvis. Examination of sma ll bowel loops revealed diffuse hyperemia and patchy hemorrhagic changes throughout most of the length of the small bowel. However the serosa appeared viable despite this . I proceeded to reflect the small bowel loops away from the left colon and the sigmoid and this allowed me to examine the left colon and the sigmoid. These appeared a little edematous and boggy but otherwise viable and did not appear grossly ischemic on the serosal side at least I exposed the transverse colon as well to allow me to examine this. I had to do mobilization of the splenic flexure as well to make sure that we were not missing any segment with full-thickness ischemia. I freed up the hepatic flexure by serially dividing the splenocolic attachments using the LigaSure. The splenic flexure was completely mobilized and was examined and this did not appear grossly ischemic as well although a little edematous. The entire transverse colon was examined all the way to the right colon. I had to mobilize the right colon and the hepatic flexure as well to allow good examination. The cecum was however markedly distended and had patches of ischemia from the distension. There was note of serosal tears from the distension of the cecum and it appeared that we had to resect this because of the patchy ischemia from the final distension. We proceeded to examine the entire colon again and as earlier, this did not appear to have any full-thickness ischemia. The changes in the left colon sigmoid were significant only for what appeared to be some edema. There did appear use hyperemia and hemorrhagic changes on the serosa of the most of the small bowel. However, these did not appear to have full-thickness ischemia so we decided against doing any resection of these the bowel loops as this would involve resecting most of the length of entire small bowel. I had decided to resect the cecum because of the marked distention, and patches of hemorrhagic changes from this distension. The marked distention appeared to post for perforation of this area. I created a mesenteric window on the terminal ileum. I divided this with a REINA 60 mm stapler. I mobilized the rest of the cecum and exposed the right colon. Created a mesenteric window again and divided the distended right colon with a REINA 80 mm stapler. I divided the attached mesentery with the LigaSure. I exposed the ileocolic pedicle dissected this to thin this out. I then applied a right angle clamp across the pedicle and this was divided above the clamp. The pedicle was doubly ligated with a Dexon 2-0 tie The cecum along with the terminal ileum was therefore sent as a specimen. At this point the plan was to do a ileostomy and mucous fistula a second-look down the line because of the hyperemic changes in the small intestine. We proceeded to excise a discoid piece of skin from the right lower quadrant that had been previously marked. We proceeded to dissect through the subcutaneous fat the anterior sheath, did muscle-splitting of the rectus and divided the posterior sheath. I dilated this opening to allow 3-0 my fingers. I used a Asad to pull up the stump of the terminal ileum through this. I proceeded to do the same with the right colon. This was pulled up as well as a separate stoma on the right upper quadrant I then matured the ileostomy by excising the staple line. At this point, we exa mined the mucosa and submucosa and this did appear to be ischemic, darkly discolored. Again it did not appear that this was full-thickness at this point. We but should the stoma by applying thickness Dexon 3-0 interrupted sutures through the full-thickness of the bowel wall to the subdermal layer I proceeded to do the same with the right colon. Excised the apex of the staple line. I applied weakness sutures to the wall to the subdermal layer using Dexon 3-0 sutures to create this mucous fistula. The mucosa and submucosa of the right colon appeared hyperemic but otherwise not darkly discolored. It did appear therefore that most of the ischemic changes of the changes mucosa/ submucosa with discoloration would be in the small intestine. I decided against resecting most of the small bowel however at this point. I decided not to close the abdomen as well as the bowel loops at this point were getting distended and would be at risk for abdominal compartment syndrome. Furthermore, it would be prudent to do a second-look see how much of the ischemia is progressing. We therefore covered the abdomen with a wet blue towel and covered this with an Ioban dressing. We applied the stoma appliance as well. The patient was then transferred to the intensive care unit. She remained on pressors the entire procedure. She had no urine output. Estimated blood loss was about One hundred cc.
--- NOTE | 2022-03-17 00:16 | P.CONCC_ITS ---
History of Present Illness Data of Consult Service Date: 03/16/22 Requesting physician: Alvaro Minor Primary Care Provider: Nonstaff Physician HPI Reason for consult: Hypotension 66-year-old moderately obese female a phone only background is hypertension was well right up until 20 3 hours ago all of a sudden on the at 01:00 hours woke up sudden onset abdominal pain described as left lower quadrant radiating towards the rectum and the pain never let up since that time presented with a lactate of 3.[address] scan that showed no free air but thickened bowel almost diffusely small bowel most prominently in the sigmoid descending colon and there was some fat stranding surrounding that area as the day went on despite the hydration patient's pain increased of anything and a lactate increased to a peak of 7 with which the surgeon decided to take her to explore in the OR open p rocedure I was there because her blood pressure came down to markedly hypotensive levels 50-60 systolic with the induction and at that point I gave 100 mcg at a time every 1-2 minutes of IV fentanyl never in supporting her blood pressure back up to 90-100 systolic in in started vasopressin at 0.04 u nits/minute that gave us a better platform to sustain with fewer pushes of phenylephrine and we sustained blood pressures of 110-120 throughout the procedure the bowel was exteriorized and explored and freed up and it the most of the bowel looked very dusky very engorged almost hemorrhagic serosal surface surface to me and the worst in the blue as part was the G the cecum and that was resected they brought out an ileostomy and 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 they kept the bowel out in other words the abdomen was not closed because it looked like it was going to be a compartment syndrome issue she main warm well perfused no acrocyanosis pressure well pres erved here I did an emergent central line because we were running vasopressin through a peripheral gained easy access the left internal jugular with the tip in the right atrium ran the vasopressin that way measured CVP which was 9-10 so we stop we stopped bolusing with fluid she received 2 to 2.5 L of normal saline and now she is on 100 cc/hour and while doing this I called up [facility] asking for interventional radiology they permitted us a bed in the surgical ICU with an accepting surgeon in the hope that we might be able to salvage viability of the bowel My bedside echo showed normal LV and RV function with globally normal systolic wall motion about a 60% ejection fraction with no primary valve or pericardial disease Review of Systems Review of Systems: Yes Unobtainable due to mental status PMFSH Past Medical History Medical History (Updated 03/17/22 @ 00:23 by Saqib King MD) Browne esophagus Hypertension Lactic acidosis Surgical History Surgical History History of section History of hysterectomy Social History Social History Household Members: Children Housing: House Do you presently have visiting nurse or other home services: No Alcohol intake: never Patient Tobacco Use Status: Never used Tobacco e-Cigarette/Vaping Use: Former Use Second Hand Smoke Exposure: No Current occupational status: employed 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 Meds Allergies Allergy/AdvReac Type Severity Reaction Status Date / Time Penicillins Allergy Severe Hives Verified 03/16/22 11:13 Active Medications: Current Medications Acetaminophen (Acetaminophen 325 Mg Tablet) 650 mg PO Q6H PRN PRN Reason: Pain, Mild (Pain Scale 1-3) Hydromorphone HCl (Hydromorphone Hcl 2 Mg Tablet) 1 mg PO Q3H PRN PRN Reason: severe pain Last Admin: 03/16/22 17:39 Dose: 1 mg Lactated Ringer's (Lr) 1,000 mls @ 100 mls/hr IVCONT .Q10H [facility] Last Admin: 03/16/22 12:24 Dose: 100 mls/hr Levofloxacin (Levaquin) 750 mg in 150 mls @ 100 mls/hr IV Q48H DEANDRA Last Admin: 03/16/22 12:27 Dose: Not Given Metronidazole (Flagyl) 500 mg in 100 mls @ 100 mls/hr IV Q8H DEANDRA Last Admin: 03/16/22 19:39 Dose: Not Given Metoclopramide HCl (Metoclopramide Hcl 10 Mg/2 Ml Vial) 5 mg IVPUSH Q4H PRN PRN Reason: nausea/vomiting Last Admin: 03/16/22 17:38 Dose: 5 mg Multivitamins/Vitamin C (Multivitamin Tablet) 1 tab PO DAILY DEANDRA Ondansetron HCl (Ondansetron Hcl 4 Mg/2 Ml Vial) 4 mg IVPUSH Q8H PRN PRN Reason: nausea/vomiting Pantoprazole Sodium (Pantoprazole Sodium 40 Mg/10 Ml Vial) 40 mg IVPUSH DAILY@0630 [facility] Last Admin: 03/16/22 12:20 Dose: 40 mg Pharmacy Consult (Consult Rx Perform Med Rec) 1 each MISCELLANE ONCE PRN PRN Reason: Consult order Sodium Chloride (0.9 % Sodium Chloride Flush 3 Ml Syringe) 3 ml IVFLUSH QSHIFT [facility] Last Admin: 03/16/22 15:20 Dose: Not Given Home Medications Medication Instructions Recorded Confirmed Last Taken Type lansoprazole 30 mg capsule,delayed 1 cap PO DAILY 03/16/22 03/16/22 03/15/22 History release lisinopril 10 mg tablet 1 tab PO DAILY 03/16/22 03/16/22 03/15/22 History multivitamin 1 tab PO DAILY 03/16/22 03/16/22 03/15/22 History Physical Exam Vital Signs: Vital Signs: Last Vital Signs Temp 97.8 F 03/16/22 16:00 Pulse 102 H 03/16/22 16:00 Resp 20 03/16/22 16:00 BP 100/62 03/16/22 16:00 Pulse Ox 94 03/16/22 16:00 O2 Del Method 03/16/22 16:00 O2 Flow Rate 2 03/16/22 13:29 FiO2 100 03/16/22 23:38 BMI result Body Mass Index 25.7 Sedated intubated Warm well perfused with no acrocyanosis no livedo Her urine output was very poor throughout the case and has remained so very dark color Abdomen remains exteriorized the chest was clear by chest x-ray no adventitious sounds Bedside echo reveals normal LV and RV function Results Labs CBC & Chem 7: 03/16/22 06:13 03/16/22 06:13 Labs: Short CBC 03/16/22 Range/Units 06:13 WBC 17.8 H (4.8-10.8) X10*3/uL Hgb 14.1 (12.0-16.0) g/dl Hct 41.1 (37.0-47.0) % Plt Count 337 (160-400) X10*3/uL BMP 03/16/22 06:13 Sodium 138 Potassium 3.7 Chloride 102 Carbon Dioxide 20 L BUN 21 H Creatinine 1.00 Calcium 9.3 Liver Function 03/16/22 Range/Units 06:13 Total Bilirubin 0.4 (0.0-1.0) mg/dL Direct Bilirubin 0.2 (0.0-0.5) mg/dL AST 29 (5-31) U/L ALT 25 (0-31) U/L Alkaline Phosphatase 95 (39-117) U/L Albumin 4.2 (3.5-5.0) g/dL Urine 03/16/22 Range/Units 09:04 Urine Color Dark Yellow Urine Appearance Clear Urine pH 5.0 (5.0-9.0) Ur Specific [place] >= 1.030 H (1.005-1.025) Urine Protein Trace (Neg-Trace) mg/dL Urine Glucose (UA) Negative (Negative) mg/dL Assessment and Plan (1) Ischemic necrosis of small bowel: Status: Acute (2) Lactic acidosis: Status: Acute (3) Abdominal pain: Status: Acute (4) Colitis: Status: Acute Plan So we have her hemodynamically stable plan is for air transport to [facility] we should be admitted to surgical ICU possible mesenteric angiography
--- NOTE | 2022-03-17 00:24 | W.PM.CCHP ---
Procedures Date of Service Date of Service: 03/17/22 Central Line Placement Left IJ: Central Line Comments: We need central line access for CVP measurement as well as running the pressors After sterile preparation and draping in the usual fashion using ultrasound guidance gained entry to the left internal jugular vein without complication passing retrograde with Seldinger technique J tipped guidewire to the right atrium over which a triple-lumen 20 cm length catheter was placed corroborated by chest x-ray to be in the right atrium without complication without pneumothorax For CVP reading 9-10 on the ventilator Consent for Procedure: Emergent-no informed consent obtained Time out performed: Yes Sterile Technique Used: Yes Patient placed on monitor/pulse ox: Yes prep: mask, gown and gloves Central line prep: Chlorhexidine scrub Ultrasound used for placement: Yes Central line lumen inserted: triple Post procedure: sutured in place, good blood return, all ports aspirated, flushed, capped and sterile dressing applied Post procedure x-ray: tip of catheter in good position and no pneumothorax seen Patient tolerated procedure: well and no complications Complications: none
--- NOTE | 2022-03-17 01:53 | PC.NURSE ---
Addendum entered by Wood Jacques RN 03/17/22 03:11: cvp =9-10 post tlc insertion Original Note: PATIENT TO ROOM 262-1 FROM OR...[employer]UG SETTER [facility]ELVET PRESENT...PER DR HOWARD TO ARRANGE TRANSFER TO [facility] POST-OP..PATIENT TUBED/VENTED...#7.0 ETT 23CM...AC16/TV 350/FIO2 100%/PEEP 5CM...SAO2 99-100%...REMAINED SEDATED POST MEDS IN OR....ABDOMEN DISTENDED AND SILENT...ILEOSTOMY AND MUCOUS FISTULAS DARK..NO DRAINAGE..RUBIN WITH SCANT TEA COLOURED URINE...VASOPRESSIN 0.04 UNITS/MIN...NS 0.9% 1000ml BOLUSES POST TRANSFER TO ICU AT 23:20...PHENYLEPHRINE 100MCG IV BOLUS X2 BY MD FOR SBP 60'S-70'S WITH EFFECT...TLC INSERTED BY MD TO LEFT JUGULAR...CXR DONE AND REVIEWED BY MD...[employer] [facility] CALLED AND ACCEPTED PATIENT AT 23:39 AND ESTIMATED ETA 2356...[employer]PARTMENTS NOTIFIED OF [facility] AT 2343...[facility] NOTIFIED AT 2342..[facility] PRESENT 00:01...REPORT CALLED TO [facility] AT [facility]..TO TRANSFER TO [place] [facility] ICU...ROOM #9...PATIENT'S DAUGHTER PRESENT AND UPDATED BY MD...PATIENT TRANSORTED BY [employer] [facility]W @00:20....NSR/S.TACH HR 86-100 AT TRANSFER
--- NOTE | 2022-08-21 13:51 | P.DS_ITS ---
DS: Providers Provider Date of Service: 03/17/22 Date of admission: 03/16/22 11:14 Date of discharge: 03/17/22 Primary care physician: Nonstaff Physician Consults: 03/16/22 10:46 Consult to Gastroenterology Routine Consulting Provider: Pioneer Nick Coombs Reason for consultation: pancolitis 03/16/22 18:13 Consult to General Surgery Stat Consulting Provider: Alvaro Minor Reason for consultation: increasing abd distension/increased lactate. colitis DS: Transfer Hospital Acceptance Reason for Transfer: Mesenteric angiography, evaluation for revascularization. Name of Facility: [facility] DS: Diagnosis Discharge Diagnosis (1) Lactic acidosis: Status: Acute (2) Ischemic necrosis of small bowel: Status: Acute (3) Acute respiratory failure: Status: Acute DS: Summary Hospital Course Hospital Course: 66-year-old lady with underlying history of hypertension and Browne esophagus admitted on 03/16/2022 with acute onset of severe rectal pain associated with nausea and nonbloody/nonbilious vomiting. Patient was admitted to medical aparicio and treated empirically for colitis. Later on the evening of admission patient was noted to have worsening abdominal pain and lactic acidosis. Surgical evaluation was obtained and patient was taking to operating room for exploratory laparotomy that showed ischemic necrosis of a large portion of small-bowel with resection of the cecum and formation of ileostomy and mucous fistula with abdomen left open. Interoperatively patient developed profound shock. Her abdomen was left open and she was transferred to intensive care unit. Transfer to a tertiary center for mesenteric angiography and attempt at bowel revascularization was requested and granted. Patient was transferred to [facility]. Status at Discharge Functional status at discharge: bed bound Time Spent with Patient Discharge coordination time: Greater than 30 minutes Quality: Safe Use of Opioids Does Pt have an Active Cancer Diagnosis on the Problem List?: No Quality: Stroke Does the patient have a stroke diagnosis?: No Physical Exam Vital Signs: Vital Signs: Last Vital Signs Temp 97.8 F 03/16/22 16:00 Pulse 102 H 03/16/22 16:00 Resp 20 03/16/22 16:00 BP 100/62 03/16/22 16:00 Pulse Ox 94 03/16/22 16:00 O2 Del Method Room Air 03/16/22 16:00 O2 Flow Rate 2 03/16/22 13:29 FiO2 100 03/16/22 23:38 BMI result Body Mass Index 25.7 Const: General: no acute distress and other (Sedated on the vent) Eyes: Sclerae: sclerae normal Neck: Neck: Yes no lymphadenopathy, Yes trachea midline and Yes supple Resp: Auscultation: crackles (Diffuse bilateral) Cardio: Rate: tachycardic Rhythm: regular rhythm Heart sounds: no gallops, no murmurs and no rubs GI: Inspection: Yes other (Open abdomen with dressing) Extrem: General: No clubbing, No cyanosis and Yes edema (Trace bilateral) DS: Data Data Completed and Pending Completed studies during hospitalization [Text1]: Pending at discharge 03/16/22 22:30 Surgical [PTH] Routine Procedures Bypass Ileum to Cutaneous, Open Approach (03/16/22) Bypass Large Intestine to Cutaneous with Autologous Tissue Substitute, Open Approach (03/16/22) Insertion of Infusion Device into Right Atrium, Percutaneous Approach (03/16/22) Monitoring of Venous Pressure, Central, Percutaneous Approach (03/16/22) Release Peritoneum, Open Approach (03/16/22) Resection of Cecum, Open Approach (03/16/22) Ultrasonography of Superior Vena Cava, Guidance (03/16/22) Discharge Plan Discharge Anticipated Discharge Date/Time: 03/17/22 03:24 Patient Disposition: [facility] Hospital Discharge Diagnosis: ischemic bowel ischemic bowel Referrals: Physician,Nonstaff [Primary Care Provider] - 1 Week Discharge Medications: Discontinued lisinopril 10 mg tablet 1 tab PO DAILY multivitamin Tablet 1 tab PO DAILY lansoprazole 30 mg capsule,delayed release(DR/EC) 1 cap PO DAILY Discharge Orders: Discharge Order (Routine); Ordered 03/17/22 Ordered By: Saqib King Activity on Discharge: Rest with bed elevated Care Plan Goals: Tertiary institution for possible interventional radiology Health Concerns: Ischemic bowel with threatened necrosis Plan of Treatment: Admitted to the surgical service possible attempted reperfusion of the bowel versus resection Assessment: Very grave situation and prognosis Discharge Date/Time: 03/17/22 00:20
== END 2022-03-17 00:20 | disposition short-term general hospital (02) | DRG 329 ==
LOC: HO.ED 10:15 → HO.EDOVER 11:22 → HO.S3 15:21 → HO.ICU 22:32
PROVIDERS: Anesthesiology; Emergency Medicine; Surgery; Admitting Provider Family Medicine; Emergency Provider Emergency Medicine; Visit Provider Family Medicine
PROC: 0DTH0ZZ Resection of Cecum, Open Approach (ICD-10-PCS; CPT 49000; principal; 2022-03-16 20:00)
DX: K55.029 Acute infarction of small intestine, extent unspecified (principal); T81.19XA Other postprocedural shock, initial encounter; E87.20 Acidosis, unspecified; K66.0 Peritoneal adhesions (postprocedural) (postinfection); K55.9 Vascular disorder of intestine, unspecified; Z68.25 Body mass index [BMI] 25.0-25.9, adult; E66.9 Obesity, unspecified; I10 Essential (primary) hypertension; K22.70 Barrett's esophagus without dysplasia; Z20.822 Contact with and (suspected) exposure to COVID-19; Z88.0 Allergy status to penicillin; Z79.899 Other long term (current) drug therapy; Y83.2 Surgical operation with anastomosis, bypass or graft as the cause of abnormal reaction of the patient, or of later complication, without mention of misadventure at the time of the procedure; Y92.234 Operating room of hospital as the place of occurrence of the external cause
CPT/HCPCS: 36415; 71045; 74177; 80048; 80076; 81001; 83605; 83690; 83735; 85025; 85379; 85610; 85730; 86140; 86850; 86900; 86901; 87040; 87635; 88307; 94002; 99285; C1758; J0171; J1100; J1170; J1650; J1956; J2250; J2270; J2370; J2405; J2765; J2795; J3010; Q9967